=== PATIENT | male | born 1975 | race Hispanic/Latino ===

== ENCOUNTER 2019-08-03 23:10 | Emergency (ER) | payer OTHER ==
[2019-08-03] MEDS ORDERED: ACETAMINOPHEN EXTRA STRENGTH 500 MG TABLET ONE (23:25)
[2019-08-03] MEDS ORDERED: IBUPROFEN 800 MG TAB ONE (23:25)
[2019-08-03] MEDS ORDERED: ZOSYN 3.375GM+NS 50ML 50 ML IV ONE (23:31)
[2019-08-03 23:39] LABS: BASOPHILS % (AUTO) 0.2 % (0.0-5.0); EOSINOPHILS % (AUTO) 0.4 % (0.0-8.0); HEMATOCRIT 26.3 % (42-54); LYMPHOCYTES % (AUTO) 4.9 % (21.0-51.0); MEAN CORPUSCULAR HEMOGLOBIN 29.5 pg (27.0-33.0); MEAN CORPUSCULAR HGB CONC 33.1 g/dL (32.0-36.0); MEAN CORPUSCULAR VOLUME 89.2 fL (79-99); MONOCYTES % (AUTO) 1.1 % (3.0-13.0); NEUTROPHILS % (AUTO) 92.7 % (40.0-77.0); PLATELET COUNT (AUTO) 370 K/uL (130-400); RED BLOOD CELL COUNT(AUTO) 2.95 MIL/uL (4.50-6.20); RED CELL DISTRIBUTION WIDTH 12.3 % (11.0-15.5); WHITE BLOOD COUNT (AUTO) 4.5 K/uL (4.8-10.8)
[2019-08-03 23:48] LABS: CARBON DIOXIDE 29 mmol/L (21-32); CHLORIDE 96 mmol/L (101-111); CREATININE 0.9 mg/dL (0.5-1.5); GLOMERULAR FILTR. RATE CALC 98 mL/min (>60); GLUCOSE,RANDOM 173 mg/dL (70-105); POTASSIUM 4.2 mmol/L (3.5-5.1); SODIUM SERUM 133 mmol/L (136-145); UREA NITROGEN, BLOOD 10 mg/dL (7-18)
[2019-08-03 23:53] LABS: INR 1.15 (0.85-1.15); PARTIAL THROMBOPLASTIN TIME 33.7 SEC (26.3-35.5)
[2019-08-03 23:54] LABS: APPEARANCE,URINE Clear (CLEAR); BILIRUBIN,URINE Small (NEGATIVE); COLOR,URINE Dark Yellow (YELLOW); GLUCOSE, URINE (UA) TRACE mg/dL (NEGATIVE); KETONES,URINE 15 mg/dL (NEGATIVE); LEUKOCYTE ESTERASE ,URINE Trace (NEGATIVE); NITRATE,URINE Negative (NEGATIVE); OCCULT BLOOD,URINE Negative (NEGATIVE); PROTEIN,URINE POS 2+ mg/dL (NEGATIVE); UROBILINOGEN,URINE >=8.0 mg/dL (0.2-1.0)
[2019-08-03 23:58] LABS: BACTERIA,URINE None Seen /HPF (None Seen); MUCUS,URINE Rare LPF (None Seen); RBC,URINE None Seen /HPF (0-1); SQUAMOUS EPITHELIAL CELL,UR Few /HPF (0-2); WBC,URINE 0-1 /HPF (0-1)
[2019-08-03 23:58] LABS: ALANINE AMINOTRANSFERASE 25 U/L (12-78); ALBUMIN 2.5 g/dL (3.5-5.0); ASPARTATE AMINOTRANSFERASE 20 U/L (10-37); BILIRUBIN,TOTAL 1.3 mg/dL (0.2-1.0); CREATINE KINASE, TOTAL 22 U/L (21-232); MYOGLOBIN 10 ng/mL (10-92); TOTAL PROTEIN, SERUM 7.2 g/dL (6.0-8.3); TROPONIN I < 0.04 ng/mL (0.00-0.06)
[2019-08-04] MEDS ORDERED: NOREPINEPHRINE BITARTRATE 1 MG/1 ML ML IV ONE (01:54)
[2019-08-04] MEDS ORDERED: SODIUM CHLORIDE 0.9% 250 ML IV ONE (01:55)
[2019-08-04] MEDS ORDERED: SODIUM CHLORIDE 0.9% 100 ML IV ONE (02:53)
== END 2019-08-04 04:20 | disposition home or self-care (01) ==
LOC: EDH 23:10
DX: A41.9 Sepsis, unspecified organism (principal); K65.1 Peritoneal abscess; R65.21 Severe sepsis with septic shock; K76.89 Other specified diseases of liver; D64.9 Anemia, unspecified; R50.9 Fever, unspecified; E11.9 Type 2 diabetes mellitus without complications; Z90.49 Acquired absence of other specified parts of digestive tract
CPT/HCPCS: 36415 ×2; 36430; 71045; 74176; 80053; 81001; 82550; 82948; 83605 ×2; 83690; 83874; 84145; 84484; 85025; 85610; 85730; 86850; 86900; 86901; 86922; 87040 ×2; 87077; 87088; 87186; 87804 ×2; 93005; 96365; 96366 ×2; 96367; 99291; J2543; J3490; J7030; P9016

== ENCOUNTER 2021-06-01 22:08 | Inpatient (IN) | payer BC, OTHER ==
[~2021-06-01] VITALS: Ht 185.4 cm; Wt 98.9 kg
[2021-06-01] MEDS ORDERED: 0.9%NACL 1000ML 1,000 ML IV ONE (22:30)
[2021-06-01] MEDS ORDERED: ACETAMINOPHEN 500 MG TABLET PO ONE (22:30)
[2021-06-01 22:46] LABS: BASOPHILS % (AUTO) 0.2 % (0.0-5.0); HEMATOCRIT 40.2 % (42-54); LYMPHOCYTES % (AUTO) 4.7 % (21.0-51.0); MEAN CORPUSCULAR HEMOGLOBIN 29.9 pg (27.0-33.0); MEAN CORPUSCULAR HGB CONC 33.3 g/dL (32.0-36.0); MEAN CORPUSCULAR VOLUME 89.7 fL (79-99); MONOCYTES % (AUTO) 1.5 % (3.0-13.0); NEUTROPHILS % (AUTO) 93.2 % (40.0-77.0); PLATELET COUNT (AUTO) 162 K/uL (130-400); RED BLOOD CELL COUNT(AUTO) 4.48 MIL/uL (4.50-6.20); RED CELL DISTRIBUTION WIDTH 12.3 % (11.0-15.5); WHITE BLOOD COUNT (AUTO) 5.3 K/uL (4.8-10.8)
[2021-06-01 22:58] LABS: POTASSIUM 4.2 mmol/L (3.5-5.1)
[2021-06-01 23:03] LABS: ALBUMIN 3.6 g/dL (3.5-5.0); BILIRUBIN,TOTAL 1.3 mg/dL (0.2-1.0); TOTAL PROTEIN, SERUM 7.5 g/dL (6.0-8.3)
[2021-06-02] MEDS ORDERED: 0.9%NACL 1000ML 1,000 ML IV ONE ×2 (00:08→00:30)
[2021-06-02 00:10] LABS: APPEARANCE,URINE Clear (CLEAR); BILIRUBIN,URINE Negative (NEGATIVE); COLOR,URINE Dark Yellow (YELLOW); GLUCOSE, URINE (UA) >=1000 mg/dL (NEGATIVE); KETONES,URINE 15 mg/dL (NEGATIVE); LEUKOCYTE ESTERASE ,URINE Negative (NEGATIVE); NITRATE,URINE Negative (NEGATIVE); OCCULT BLOOD,URINE Negative (NEGATIVE); PROTEIN,URINE POS 1+ mg/dL (NEGATIVE)
[2021-06-02 00:22] LABS: BACTERIA,URINE None Seen /HPF (None Seen); RBC,URINE None Seen /HPF (0-1); SQUAMOUS EPITHELIAL CELL,UR Few /HPF (0-2); WBC,URINE None Seen /HPF (0-1); YEAST,URINE BUDDING None Seen /HPF (None Seen)
[2021-06-02] MEDS ORDERED: ZOSYN 3.375GM+NS 50ML 50 ML ONE (00:26)
[2021-06-02] MEDS ORDERED: DOXYCYCLINE HYCLATE 100 MG TABLET PO SCH (00:30)
[2021-06-02] MEDS ORDERED: ZOSYN 3.375GM +NS 50ML IV SCH (00:30)
[2021-06-02] MEDS ORDERED: 0.9%NACL 1000ML 1,000 ML IV SCH (01:30)
[2021-06-02] MEDS ORDERED: LACTULOSE 20 GM/30 ML UDCUP PO PRN (01:30)
[2021-06-02] MEDS ORDERED: MAG/ALUM/SIMETH 30 ML UDCUP PO PRN (01:30)
[2021-06-02] MEDS ORDERED: ONDANSETRON 4MG INJ IV PRN (01:30)
[2021-06-02] MEDS ORDERED: DIPHENHYDRAMINE HCL 25 MG CAPSULE PO PRN (01:30)
[2021-06-02] MEDS ORDERED: GUAIFENESIN-DM 200/20 MG 10 ML PO PRN (01:30)
[2021-06-02] MEDS ORDERED: ACETAMINOPHEN 325 MG TAB PO PRN (01:30)
[2021-06-02] MEDS ORDERED: DOXYCYCLINE HYCLATE 100 MG TABLET PO ONE (02:00)
[2021-06-02] MEDS: 0.9%NACL 1000ML 1,000 ML IV SCH ×2 (02:47→12:44)
[2021-06-02] MEDS ORDERED: NOREPINEPHRIN 4MG/NS 250ML 250 ML IV ONE (03:50)
[2021-06-02] MEDS ORDERED: NOREPINEPHRINE 4MG/NS 250ML IV SCH (03:55)
[2021-06-02] MEDS: ZOSYN 3.375GM+NS 50ML 50 ML IV SCH ×3 (05:43→20:24)
[2021-06-02] MEDS: FAMOTIDINE 20MG VIAL IV SCH ×2 (09:00→20:24)
[2021-06-02 09:07] LABS: AMYLASE 21 U/L (25-115); LIPASE 59 U/L (114-286)
[2021-06-02] MEDS: MORPHINE 2 MG SYG IV PRN (12:15)
[2021-06-02] MEDS ORDERED: 0.9%NACL 50ML 50 ML IV ONE (12:37)
[2021-06-02 16:00] VITALS: BP 140/73
[2021-06-02] MEDS: ACETAMINOPHEN 325 MG TAB PO PRN (20:24)
[2021-06-02 20:32] VITALS: BP 100/57
[2021-06-02] MEDS ORDERED: VANCOMYCIN 1G VIAL IVPB SCH (23:00)
[2021-06-02] MEDS ORDERED: VANCOMYCIN 1G/250ML KIT 250 ML IV ONE (23:00)
[2021-06-02] MEDS ORDERED: VANCOMYCIN PROTOCOL PER PHARMACY IV SCH (23:00)
[2021-06-02] MEDS ORDERED: 0.9% NACL 250ML IV SCH (23:00)
[2021-06-02] MEDS ORDERED: IBUPROFEN 600 MG TABLET PO ONE (23:00)
[2021-06-02] MEDS ORDERED: 0.9% NACL 250ML 250 ML ONE (23:30)
[2021-06-02 23:40] VITALS: BP_SYST 71; BP_SYST 72; BP_DIAS 41; BP_DIAS 42
[2021-06-02] MEDS ORDERED: 0.9%NACL 1000ML 1,000 ML IV STA (23:45)
[2021-06-02] MEDS ORDERED: MIDODRINE HCL 5 MG TABLET PO STA (23:45)
[2021-06-02] MEDS: LACTATED RINGERS 1000ML 1,000 ML IV SCH (23:46)
[2021-06-03] VITALS (46 sets, daily range): BP systolic 78–138; BP diastolic 33–86
[2021-06-03] MEDS ORDERED: ALBUMIN (HUMAN) 25% 50 ML IV SCH (02:12)
[2021-06-03] MEDS ORDERED: ALBUMIN (HUMAN) 25% 100 ML IV ONE (02:18)
[2021-06-03] MEDS: 0.9%NACL 1000ML 1,000 ML IV SCH ×2 (02:28→03:31)
[2021-06-03] MEDS: ZOSYN 3.375GM+NS 50ML 50 ML IV SCH ×3 (04:42→20:21)
[2021-06-03 04:43] LABS: BASOPHILS % (AUTO) 0.3 % (0.0-5.0); EOSINOPHILS % (AUTO) 0.1 % (0.0-8.0); HEMATOCRIT 34.7 % (42-54); LYMPHOCYTES % (AUTO) 7.2 % (21.0-51.0); MEAN CORPUSCULAR HGB CONC 32.3 g/dL (32.0-36.0); MONOCYTES % (AUTO) 7.4 % (3.0-13.0); NEUTROPHILS % (AUTO) 82.7 % (40.0-77.0); PLATELET COUNT (AUTO) 85 K/uL (130-400); RED BLOOD CELL COUNT(AUTO) 3.73 MIL/uL (4.50-6.20); RED CELL DISTRIBUTION WIDTH 13.2 % (11.0-15.5); WHITE BLOOD COUNT (AUTO) 11.8 K/uL (4.8-10.8)
[2021-06-03 04:55] LABS: INR 1.51 (0.85-1.15); PROTHROMBIN TIME 15.9 SEC (9.6-11.6)
[2021-06-03 04:57] LABS: PARTIAL THROMBOPLASTIN TIME 39.8 SEC (26.3-35.5)
[2021-06-03 05:05] LABS: ALBUMIN 2.6 g/dL (3.5-5.0); BILIRUBIN,DIRECT 1.1 mg/dL (0.0-0.3); BILIRUBIN,TOTAL 1.4 mg/dL (0.2-1.0); CREATININE 1.2 mg/dL (0.5-1.5); MAGNESIUM 1.6 mg/dL (1.80-2.40); PHOSPHORUS 3.4 mg/dL (2.5-4.9); TOTAL PROTEIN, SERUM 5.9 g/dL (6.0-8.3)
[2021-06-03] MEDS ORDERED: COMPOUND IV REFRIGERATED 1 EACH IVSOLN MISC PRN (06:30)
[2021-06-03] MEDS: LACTATED RINGERS 1000ML 1,000 ML IV SCH ×3 (07:30→21:30)
[2021-06-03 08:23] LABS: HEMOGLOBIN A1C 12.2 % (4.0-6.0)
[2021-06-03] MEDS ORDERED: FLUCONAZOLE 400 MG/NS 200 ML 200 ML IV SCH (09:00)
[2021-06-03] MEDS ORDERED: LIDOCAINE HCL-MPF 1% 2ML VIAL IV PRN ×2 (09:00)
[2021-06-03] MEDS ORDERED: GLUCAGON 1MG KIT 1 MG ML IM PRN (09:00)
[2021-06-03] MEDS ORDERED: POTASSIUM CHLORIDE 10% ELIXIR 20 MEQ/15 ML UDCUP PO PRN (09:00)
[2021-06-03] MEDS ORDERED: DEXTROSE 50%-WATER 50 ML DISP.SYRIN IV PRN (09:00)
[2021-06-03] MEDS ORDERED: POTASSIUM CHLORIDE 20MEQ/100ML 100 ML IV PRN ×2 (09:00)
[2021-06-03] MEDS: FAMOTIDINE 20MG VIAL IV SCH ×2 (10:04→20:20)
[2021-06-03] MEDS: VANCOMYCIN 1.25GM/NS 250ML IVPB SCH ×4 (10:04→20:21)
[2021-06-03] MEDS: INSULIN HUMULIN R 100 UNIT/ML 3ML SQ SCH ×3 (11:30→20:20)
[2021-06-03] MEDS: ACETAMINOPHEN WITH CODEINE 1 TAB TAB PO PRN ×2 (13:35→21:55)
[2021-06-03] MEDS: MORPHINE 2 MG SYG IV PRN (19:25)
[2021-06-03] MEDS: ACETAMINOPHEN 325 MG TAB PO PRN (21:56)
[2021-06-04 03:26] VITALS: BP 92/53
[2021-06-04 03:36] LABS: BASOPHILS % (AUTO) 0.2 % (0.0-5.0); EOSINOPHILS % (AUTO) 0.7 % (0.0-8.0); HEMATOCRIT 34.7 % (42-54); LYMPHOCYTES % (AUTO) 7.4 % (21.0-51.0); MEAN CORPUSCULAR HEMOGLOBIN 30.1 pg (27.0-33.0); MEAN CORPUSCULAR HGB CONC 32.6 g/dL (32.0-36.0); MEAN CORPUSCULAR VOLUME 92.3 fL (79-99); MONOCYTES % (AUTO) 8.9 % (3.0-13.0); NEUTROPHILS % (AUTO) 82.2 % (40.0-77.0); PLATELET COUNT (AUTO) 104 K/uL (130-400); RED BLOOD CELL COUNT(AUTO) 3.76 MIL/uL (4.50-6.20); RED CELL DISTRIBUTION WIDTH 13.1 % (11.0-15.5); WHITE BLOOD COUNT (AUTO) 8.6 K/uL (4.8-10.8)
[2021-06-04 03:54] LABS: ALBUMIN 2.2 g/dL (3.5-5.0); BILIRUBIN,DIRECT 0.5 mg/dL (0.0-0.3); BILIRUBIN,TOTAL 0.9 mg/dL (0.2-1.0); POTASSIUM 3.6 mmol/L (3.5-5.1); TOTAL PROTEIN, SERUM 5.6 g/dL (6.0-8.3)
[2021-06-04] MEDS: ZOSYN 3.375GM+NS 50ML 50 ML IV SCH (05:05)
[2021-06-04] MEDS: LACTATED RINGERS 1000ML 1,000 ML IV SCH (05:06)
[2021-06-04] MEDS: INSULIN HUMULIN R 100 UNIT/ML 3ML SQ SCH ×2 (05:06→11:30)
[2021-06-04 07:46] VITALS: BP 106/67
[2021-06-04] MEDS ORDERED: MAGNESIUM 2GM PREMIX 50ML 50 ML IV PRN (09:30)
[2021-06-04] MEDS: FAMOTIDINE 20MG VIAL IV SCH (10:04)
[2021-06-04] MEDS: KCL 20 MEQ ERTAB PO PRN ×2 (10:22→12:17)
[2021-06-04 12:00] VITALS: BP 135/81
[2021-06-04] MEDS: VANCOMYCIN 1.25GM/NS 250ML IVPB SCH ×2 (12:19)
== END 2021-06-04 15:23 | disposition short-term general hospital (02) | DRG 871 ==
LOC: EDH 22:08 → EDHIP 06-02 01:22 → INTOOBSV 06-02 01:22 → OBSVTOIN 06-02 01:22 → 3AH 06-02 16:20 → 2CH 06-03 04:53 → 2DH 06-03 20:54
PROVIDERS: ADMIT Internal Medicine; ATTEND Internal Medicine
DX: A41.9 Sepsis, unspecified organism (principal); R65.21 Severe sepsis with septic shock; E46 Unspecified protein-calorie malnutrition; Q44.4 Choledochal cyst; K80.32 Calculus of bile duct with acute cholangitis without obstruction; K76.0 Fatty (change of) liver, not elsewhere classified; Z20.822 Contact with and (suspected) exposure to COVID-19; E11.9 Type 2 diabetes mellitus without complications; D69.6 Thrombocytopenia, unspecified; N20.0 Calculus of kidney; B96.20 Unspecified Escherichia coli [E. coli] as the cause of diseases classified elsewhere; Z68.28 Body mass index [BMI] 28.0-28.9, adult; Z90.49 Acquired absence of other specified parts of digestive tract; Z91.19 Patient's noncompliance with other medical treatment and regimen; Z83.3 Family history of diabetes mellitus; E66.9 Obesity, unspecified
CPT/HCPCS: 36415; 71045; 74176; 74181; 76700; 80048; 80053; 80076; 81001; 82010; 82150; 82550; 82948; 83036; 83605; 83690; 83735; 83880; 84100; 84145; 84484; 85025; 85610; 85730; 87040; 87077; 87088; 87186; 87635; 87804; 99291; C9803; G0378; J1450; J2543; J3370; J3475; J3490; J7030; J7050; J7120; P9046